=== PATIENT | female | born 1950 | race Caucasian/White ===

== ENCOUNTER 2016-09-30 19:39 | Emergency (ER) | payer BC ==
[~2016-09-30] VITALS: Ht 162.6 cm; Wt 56.0 kg
[~2016-09-30 19:39] MED LIST: ACTONEL35 MG PO; AUGMENTIN875 MG PO; CALCITRIOL0.25 MC1 PO; CELLCEPT250 MG PO; CENTRUM SILVER1 EACH PO; DIOVAN160 MG PO; DIOVAN80 MG PO; FEOSOL325 MG PO; METOPROLOL TART50 MG PO; PREDNISONE5 M2 PO; PREDNISONE5 MG PO; PROGRAF0.5 MG PO; PROTONIX40 MG PO; TACROLIMUS ANH0.5 MG PO; VITAMIN D
[2016-09-30] MEDS ORDERED: LOPRESSOR50 MG PO (20:16)
[2016-09-30 20:26] LABS: HEMATOCRIT 34.9 % (36.0-46.0); MCH 28.6 PG (29.0-34.0); MCHC 33.2 G/DL (30.0-36.0); MEAN PLAT.VOLUME 9.3 uM^3 (9.5-12.4); PLATELET COUNT 180 K/uL (156-360); RBC DIS.WIDTH-CV 13.1 % (11.8-14.6); RBC DIS.WIDTH-SD 41.4 % (39-53); RED BLOOD COUNT 4.06 M/uL (3.80-5.20); WHITE BLOOD COUNT 5.6 K/uL (4.1-10.2)
[2016-09-30 20:39] LABS: CHLORIDE 108 mEq/L (99-109); POTASSIUM 4.1 mEq/L (3.7-5.4); SODIUM 143 mEq/L (136-147)
[2016-09-30 20:41] LABS: GLUCOSE 98 mg/dL (70-99)
[2016-09-30 20:43] LABS: ANION GAP 12 MEQ/L (2-14); TOTAL BILIRUBIN 0.3 mg/dL (0.0-1.0)
[2016-09-30 20:45] LABS: ALKALINE PHOSPHATASE 54 IU/L (3-129); GFR ESTIMATE (CALCULATED) 30 mL/min/
[2016-09-30 20:46] LABS: UREA NITROGEN (BUN) 33 mg/dL (9-23)
[2016-09-30 22:31] VITALS: BP 221/88
== END 2016-09-30 22:33 | disposition home or self-care (01) ==
LOC: EME 19:39
PROVIDERS: Nurse Practitioner Family
DX: S61.210A Laceration without foreign body of right index finger without damage to nail, initial encounter (principal); W26.0XXA Contact with knife, initial encounter; Y93.G1 Activity, food preparation and clean up
CPT/HCPCS: 73140; 80053; 85027; 99281; 99284